=== PATIENT | female | born 1945 | race Caucasian/White ===

== ENCOUNTER 2019-04-08 17:13 | Emergency (ER) | payer MEDICARE, BC ==
[~2019-04-08] VITALS: Ht 170.2 cm; Wt 72.6 kg
[~2019-04-08 17:13] MED LIST: CIPR500 PO; FENO145 PO; METR500 PO; PROLIA60 MG/1 ML SQ; SIMV40 PO
[2019-04-08] MEDS ORDERED: ASPI81CH PO (18:06)
[2019-04-08] MEDS ORDERED: ESCI10 PO (18:07)
[2019-04-08] MEDS ORDERED: Keflex500 MG PO (20:00)
== END 2019-04-08 20:09 | disposition home or self-care (01) ==
LOC: ER 17:13
DX: S61.216A Laceration without foreign body of right little finger without damage to nail, initial encounter (principal); W18.30XA Fall on same level, unspecified, initial encounter; Z88.2 Allergy status to sulfonamides; Z79.899 Other long term (current) drug therapy
CPT/HCPCS: 12002; 73140; 90471; 90714; 99283-25